=== PATIENT | female | born 1965 | race African-American/Black ===

== ENCOUNTER 2022-10-05 11:57 | Observation (INO) | payer OTHER ==
[~2022-10-05] VITALS: Ht 165.1 cm; Wt 92.8 kg
[2022-10-05] VITALS (18 sets, daily range): BP systolic 134–190; BP diastolic 63–106
--- NOTE | 2022-10-05 12:01 | NUR ---
PT ARRIVED VIA EMS WITH C/O HTN AND CANO THAT BEGAN TODAY.
[2022-10-05] MEDS ORDERED: NIFEDIPINE ER90 M1 PO (12:44)
[2022-10-05] MEDS ORDERED: ENTRESTO 49-511 TAB PO (12:45)
[2022-10-05] MEDS ORDERED: KLOR-CON M2020 MEQ PO (12:46)
[2022-10-05 12:59] LABS: BASO% 0.8 % (0-3); EOS% 0.8 % (0-8); HEMATOCRIT 40.6 % (37.0-47.0); HEMOGLOBIN 13.4 g/dl (12.0-16.0); IMMATURE GRANULOCYTES 1.5 % (0.0-5.0); LYMPH% 38.9 % (15-41); MEAN CELL VOLUME 85.8 fL CALC (80.0-100.0); MEAN CORPUSCULAR HGB 28.3 pG CALC (26.0-32.0); MONO% 15.1 % (2-13); NEUT# 2.86 thou/uL (2.00-7.15); NEUT% 42.9 % (42-76); RED BLOOD COUNT 4.73 mill/uL (4.20-5.60)
[2022-10-05] MEDS ORDERED: CELLCEPT500 MG PO (13:02)
[2022-10-05] MEDS ORDERED: PREDNISONE5 MG PO (13:03)
[2022-10-05 13:14] LABS: ALBUMIN 4.5 g/dL (3.2-5.0); ALKALINE PHOSPHATASE 97 u/l (38-126); ANION GAP 13 (6-22 (CALC)); BILIRUBIN, TOTAL 0.6 mg/dL (0.02-1.3); BUN 16 mg/dL (7-17); BUN/CREATININE RATIO 21 (12-20 (CALC)); CARBON DIOXIDE 33 mmol/l (22-30); CHLORIDE 89 mmol/l (95-108); CREATININE 0.8 mg/dL (0.5-1.0); GFR FOR AFR.AMER. > 60 ML/MIN (>=60 (CALC)); GFR OTHER RACES > 60 ML/MIN (>=60 (CALC)); MAGNESIUM 1.7 mg/dL (1.6-2.3); POTASSIUM 2.6 mmol/l (3.5-5.1); SGOT/AST 32 u/l (14-36); SODIUM 132 mmol/l (137-146); TOTAL PROTEIN 8.4 g/dL (6.3-8.2)
[2022-10-05 13:17] LABS: PROTHROMBIN TIME 10.1 SECONDS (9.0-12.5)
--- NOTE | 2022-10-05 16:23 | NUR ---
PT ABLE TO AMBULATE TO THE RESTROOM .
[2022-10-05 16:55] LABS: URINE BILIRUBIN - DIPSTICK NEGATIVE (NEGATIVE); URINE BLOOD DIPSTICK NEGATIVE (NEGATIVE); URINE COLOR YELLOW; URINE GLUCOSE - DIPSTICK NEGATIVE (NEGATIVE); URINE KETONE NEGATIVE (NEGATIVE); URINE LEUK ESTERASE NEGATIVE (NEGATIVE); URINE PROTEIN - DIPSTICK NEGATIVE (NEG-TRACE); URINE SPECIFIC GRAVITY <=1.005; URINE UROBILINOGEN - DIPSTICK 0.2 E.U./dL (0.2)
[2022-10-05 16:56] LABS: URINE NITRITE - DIPSTICK NEGATIVE (Negative)
--- NOTE | 2022-10-05 18:12 | NUR ---
REPORT GIVEN TO СВЕТЛАНА LEE
--- NOTE | 2022-10-05 18:45 | NUR ---
PT TO ROOM 264 VIA RN AND TELE BOX ON STRETCHER.
[2022-10-05] MEDS ORDERED: OZEMPIC 8 MG/3M1 INJ (18:55)
[2022-10-05] MEDS ORDERED: CHLORTHALIDONE50 MG PO (18:57)
[2022-10-05] MEDS ORDERED: METFORMIN HCL1000 MG PO (18:58)
[2022-10-05] MEDS ORDERED: LEFLUNOMIDE10 MG PO (18:59)
--- NOTE | 2022-10-05 19:38 | NUR ---
BEDSIDE REPORT RECIEVED FROM OFF GOING NURSE. PATIENT AWAKE IN ROOM WITH VISITOR AT BEDSIDE. PATIENT ASKING FOR FOOD. DIETARY MADE AWARE AND TRAY WAS DELIVERED. DENIES PAIN OR DISCOMFORT AT THIS ITME. CALL LIGHT WITHIN PLACE.
--- NOTE | 2022-10-05 23:06 | NUR ---
PATIENT ASLEEP IN BED. RESPIRATIONS EVEN AND UNLABORED ON ROOM AIR. CALL LIGHT WITHIN REACH.
[2022-10-06 00:56] VITALS: BP 130/75
--- NOTE | 2022-10-06 02:32 | NUR ---
PATIENT ASLEEP IN BED. RESPIRATIONS EVEN AND UNLABORED ON ROOM AIR. CALL LIGHT WITHIN REACH.
[2022-10-06 04:39] VITALS: BP 132/83
[2022-10-06 05:30] VITALS: BP 132/83
[2022-10-06 06:06] LABS: ANION GAP 9 (6-22 (CALC)); BUN 12 mg/dL (7-17); BUN/CREATININE RATIO 16 (12-20 (CALC)); CARBON DIOXIDE 32 mmol/l (22-30); CHLORIDE 98 mmol/l (95-108); CREATININE 0.7 mg/dL (0.5-1.0); GFR FOR AFR.AMER. > 60 ML/MIN (>=60 (CALC)); GFR OTHER RACES > 60 ML/MIN (>=60 (CALC)); SODIUM 136 mmol/l (137-146)
[2022-10-06 06:14] LABS: POTASSIUM 3.3 mmol/l (3.5-5.1)
--- NOTE | 2022-10-06 06:38 | NUR ---
PATIENT AWAKE AND ALERT SITTING IN RECLINER IN ROOM. DENIES PAIN OR DISCOMFORT. LAB RESULTS REVIEWED WITH PATIENT. NO CONCERNS VOICED. RESPIRATIONS EVEN AND UNLABORED ON ROOM AIR. CALL LIGHT WITHIN REACH.
[2022-10-06 06:54] LABS: CHOLESTEROL HDL RATIO 3.5 (<4.4 (CALC)); MAGNESIUM 1.8 mg/dL (1.6-2.3)
[2022-10-06 07:02] VITALS: BP 115/78
--- NOTE | 2022-10-06 07:30 | NUR ---
PERFORMED BEDSIDE REPORT WITH NIGHTSHIFT NURSE. PT NOTED SITTING UP ON COUCH IN ROOM. PT IS A/OX3, MOOD IS PLEASENT. PT STATED "IM READY TO GO HOME." EDUCATED PT ON PLAN OF CARE FOR TODAY. PT DENIES ANY PAIN AT THIS ITME. ON ROOM AIR, AMBULATORY WITH STEADY GAIT. CALL LIGHT WITHIN REACH AND SAFETY PRECAUTIONS IN PLACE.
[2022-10-06 10:30] VITALS: BP 162/91
--- NOTE | 2022-10-06 11:14 | NUR ---
Discharge instructions given. Patient verbalizes understanding of same. Discharged in stable condition via Wheelchair to Home with staff. All belongings sent with pt. IV site discontinued, cath intact. No edema , no redness, voices no discomfort.
== END 2022-10-06 10:57 | disposition home or self-care (01) | DRG 313 ==
LOC: ED 11:57 → ED-I 16:16 → ED 16:25 → MS2 16:26 → ED-I 16:48 → ED 16:48 → ED-I 16:49 → ED 16:49 → MS2 10-06 10:57
PROVIDERS: Internal Medicine; Nurse Practitioner; ADMIT Family Medicine; ATTEND Family Medicine
DX: R07.9 Chest pain, unspecified (principal); E87.6 Hypokalemia; I42.9 Cardiomyopathy, unspecified; I10 Essential (primary) hypertension; E11.9 Type 2 diabetes mellitus without complications; I77.6 Arteritis, unspecified
CPT/HCPCS: G0378